=== PATIENT | female | born 1955 | race Caucasian/White ===

== ENCOUNTER 2019-04-25 08:10 | Day surgery (SDC) | payer MEDICARE, MEDICAID ==
--- NOTE | 2019-04-12 10:31 | HP ---
CC: Dr. Andrew Chavez; Dr. Jomar Burleson.* ADMISSION HISTORY AND PHYSICAL: DATE OF ADMISSION: 04/25/19. ATTENDING SURGEON: Dr. Roberta Ascencio.* (DICTATED BY TOAN HAYWARD) CHIEF COMPLAINT: Primary hyperparathyroidism. HISTORY OF PRESENT ILLNESS: This is a 63-year-old female who since at least 2017 has been noted to have elevated serum calcium levels. Her PTH level was also apparently elevated though she was monitored initially. The levels were found to be elevated again on 10/19/18 with serum calcium of 10.7 and an intact PTH of 94.4 (upper limit of normal 88). She was seen by Dr. Burleson. She does have a history of osteoporosis and has sustained 2 fractures in the past couple of years, the first being a right fibular fracture in 2017 and more recently pelvic fracture in 2019 following a fall. The most recent DEXA scan from was consistent with osteoporosis. There is no history of nephrolithiasis. She has not had any history of radiation to the neck. There is no family history of endocrinopathy. She was seen in the office by Dr. Ascencio on 11/07/18 at which time an office ultrasound revealed a presence of a 14 x 7 x 11 mm hypoechoic well circumscribed nodule inferior to the left thyroid pole consistent with parathyroid adenoma. A subsequent ultrasound at [facility] [place] confirmed the presence of 1.1 x 0.5 x 0.9 cm nodule inferior to the left thyroid possibly consistent with parathyroid adenoma. A nuclear medicine SPECT scan performed on the same date initially was read as showing no abnormal update but on subsequent review in comparison with the thyroid ultrasound, there was felt to be some faint radiotracer uptake along the inferior margin of the left thyroid lobe again possibly consistent with parathyroid adenoma. The patient's original surgery had been scheduled in early December but because of an episode of severe sinusitis, surgery was canceled and rescheduled. Dr. Ascencio has reviewed with the patient the indications for surgery, the risks, benefits and alternatives. She understands the expected perioperative course including the need for postoperative calcium supplementation. She would like to proceed as scheduled with parathyroidectomy. PAST MEDICAL HISTORY: Type 2 diabetes, morbid obesity, osteoporosis, hyperlipidemia, hypertension, anxiety, osteoarthritis, and overactive bladder. PAST SURGICAL HISTORY: Include total left knee replacement in 2016, partial right knee replacement in 2013, right breast lumpectomy remotely for benign disease and appendectomy remotely. No surgical or anesthesia problems reported. She had also undergone a for delivery of a stillborn and did have bleeding problems related to the . CURRENT MEDICATIONS: 1. Omeprazole 40 mg once daily. 2. Tramadol 50 mg 2 tablets b.i.d. 3. Metformin 500 mg b.i.d. 4. Losartan 100 mg once daily. 5. Jardiance 10 mg once daily. 6. Trulicity 1.5 mg 1 dose subcutaneously once weekly. 7. Tolterodine 4 mg once daily (for overactive bladder) 8. Meloxicam 15 mg once daily. 9. Ropinirole 1 mg q. day at h.s. 10. Coreg 12.5 mg p.o. b.i.d. 11. The patient has also been initiated on Singulair 10 mg once daily. 12. Fenofibrate 160 mg once daily. 13. Laura 60 mg once daily. 14. Azithromycin (Z-XOCHITL) to be started on 04/12/19 x5 days. ALLERGIES: CODEINE (hyperactivity) (the patient does tolerate oxycodone and hydrocodone). FAMILY HISTORY: Negative for anesthesia problems, bleeding or clotting disorders. SOCIAL HISTORY: The patient is single and lives with her significant other. 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 She is a former smoker, who quit 11 years ago. She drinks on average 1 drink per month. She denies any other recreational drug use. REVIEW OF SYSTEMS: General: No recent constitutional symptoms or acute illnesses other than sinusitis. She has been treated at present for another exacerbation of sinusitis, though not as severe as before. She understands to contact us if she is still having any systemic symptoms and or productive cough. HEENT: No problems reported. Cardiovascular: No chest pain, palpitations. She was treated for hypertension. Respiratory: No recent cough or shortness of breath. GI: No problems reported. She has never had a colonoscopy, though I did encourage to discuss that with her primary care provider. : No problems reported other than overactive bladder. Musculoskeletal: Osteoarthritis, chronic edema lower extremities, right greater than left secondary to prior injury. 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 Her last pelvic exam and Pap smear were also probably at least 3 to 5 years ago and she was encouraged to have this scheduled. She denies any acute symptoms i.e. bleeding or otherwise. Endocrine: Type 2 diabetes. No thyroid dysfunction, hyperparathyroidism as noted above. PHYSICAL EXAMINATION GENERAL: Well-nourished, morbidly obese female in no acute distress. VITAL SIGNS: Height 5 feet 1 inches, weight 232, BMI 43.8, temperature 98.5, blood pressure 148/90, pulse 72. HEENT: Pupils are equal, round, and reactive. EOMs intact. No conjunctival pallor. Oropharynx: Teeth in good repair. No intraoral lesions. NECK: No lymphadenopathy, thyromegaly or masses. No palpable nodules. LUNGS: Clear to auscultation. No rales or wheezes. HEART: Regular rate and rhythm. No murmur noted. ABDOMEN: Obese, soft, nontender to palpation. No palpable masses or organomegaly though exam is limited. GENITALIA: Not done. RECTAL: Not done. BACK: Some mild lower spinous process tenderness. No other abnormalities. No CVA tenderness. EXTREMITIES: 1+ edema slightly greater right versus left. No open lesions. NEUROLOGICAL: Grossly intact. SKIN: Warm and dry. No suspicious rashes or lesions. IMPRESSION: Primary hyperparathyroidism. PLAN: Parathyroidectomy. TOAN HAYWARD [id number]/[facility] #: [id number] MTDD
[~2019-04-25 08:10] MED LIST: Buffered Lidocaine 1% SYRIN* 1 ML/SYRINGE INTRADERM ONE; Lactated Ringers 1000 ML Bag* 1,000 ML IV SCH
[2019-04-25] MEDS ORDERED: Buffered Lidocaine 1% SYRIN* 1 ML/SYRINGE INTRADERM ONE (08:59)
[2019-04-25] MEDS ORDERED: Bupivacaine 0.25% SDV* 30 ML ONE (11:01)
[2019-04-25] MEDS ORDERED: Lidocaine 1% INJ* 10 MG/ML 30 ML SDV ONE (11:01)
[2019-04-25] MEDS ORDERED: fentaNYL* 50 MCG/ML 2 ML VIAL (100 MCG VIAL) ONE (11:35)
[2019-04-25] MEDS ORDERED: Rocuronium* 10 MG/ML VIAL ONE (11:35)
[2019-04-25] MEDS ORDERED: Succinylcholine* 20 MG/ML 10 ML VIAL ONE ×2 (12:09→13:10)
[2019-04-25] MEDS ORDERED: EPHEDrine (Pressors)* 50 MG/ML VIAL ONE (12:09)
[2019-04-25] MEDS ORDERED: Glycopyrrolate IV* 0.2 MG/ML 1 ML VIAL ONE (12:09)
[2019-04-25] MEDS ORDERED: Phenylephrine 40 MCG/ML SYRINGE ONE (12:09)
[2019-04-25] MEDS ORDERED: Propofol* 10 MG/ML 20 ML BTL ONE (12:09)
[2019-04-25] MEDS ORDERED: Naloxone* 0.4 MG/ML 1 ML VIAL IV PRN (12:49)
[2019-04-25] MEDS ORDERED: Acetaminophen IV 1GM/100ML * 1,000 MG/100 ML VIAL IVPB ONE (12:49)
[2019-04-25] MEDS ORDERED: fentaNYL* 50 MCG/ML 2 ML VIAL (100 MCG VIAL) IV PRN (12:49)
[2019-04-25] MEDS ORDERED: Ondansetron INJ* 2 MG/ML VIAL ONE (13:10)
[2019-04-25] MEDS ORDERED: Metoclopramide IV* 5 MG/ML 2 ML VIAL ONE (13:12)
--- NOTE | 2019-04-25 13:22 | BRIEFOPN ---
Brief Operative/Procedure Note - Operation Details Pre-Op Diagnosis: hyperparathyroidism Post-Op Diagnosis: same Procedures: parathyroidectomy with 4 gland exploration Surgeon(s)/Proceduralists: Sonu. Assist: TOAN Ken Anesthesia: GET. Fluids: 1100 ml RL Estimated Blood Loss: < 50 ml Findings: as above Specimen(s)/Culture(s) Description: left lower parathyroid gland Complications: none
[2019-04-25] MEDS ORDERED: Acetaminophen IV 1GM/100ML * 100 ML ONE (14:09)
--- NOTE | 2019-04-25 15:55 | OP ---
CC: Dr. Jomar Burleson * DATE OF OPERATION: 04/25/19 - SDS DATE OF : 55 SERVICE: General Surgery. SURGEON: Roberta Ascencio MD COMBINATION WINDOW INSTALLER: TOAN Campos ANESTHESIOLOGIST: Dr. Darell De Luna. ANESTHESIA: General endotracheal anesthesia. PRE-OP DIAGNOSIS: Primary hyperparathyroidism. POST-OP DIAGNOSIS: Primary hyperparathyroidism. OPERATIVE PROCEDURES: Left lower parathyroidectomy and 4-gland exploration. SPECIMENS: Left lower parathyroid gland. ESTIMATED BLOOD LOSS: Minimal, less than 10 cc. COMPLICATIONS: None. INDICATIONS FOR SURGERY: Ms. Whitaker is a very pleasant 63-year-old female with history of osteoporosis and primary hyperparathyroidism. During her work up, imaging studies showed that she had an enlarged left lower parathyroid gland. She therefore gave informed consent for a parathyroidectomy. She understood that the risks included, but were not limited to bleeding, infection and injury to nearby structures, and the possibility of hypoparathyroidism. She understood the alternatives and benefits as well and she wished to proceed. DESCRIPTION OF PROCEDURE: The patient was brought back to the operating room and placed on the operating table in the supine position. Sequential compression devices were placed on the bilateral lower extremities for DVT prophylaxis. No antibiotics were administered. General endotracheal anesthesia was induced and then the electrodes for the nerve monitor were attached. Next, given that the patient was very obese and had a large habitus, her bilateral breasts had to be taped down in order to expose the neck in an extended position. Next, a time-out was performed prior to administering local anesthesia to the neck, which consisted of 0.25% Marcaine and 1% lidocaine mixed. After this, her neck was prepped and draped in normal sterile fashion and then another time-out was performed confirming the patient's name, date of , and the procedure to be performed prior to beginning the actual surgery. Next, a 4 cm incision was made in the anterior neck approximately 2 fingerbreadths above the sternal notch in the natural crease line. The skin was divided down to the subcutaneous tissue. The platysma was divided and the inferior and superior subplatysmal flaps were then developed. The median raphe between the strap muscles was identified and divided and then the strap muscle was retracted laterally off of the left lobe of the thyroid, given that her preoperative ultrasound identified a enlarged left lower gland. The middle thyroid vein was identified and divided in order to allow the left thyroid lobe to be rotated medially and anteriorly of the neck. The left upper parathyroid was identified very easily and a small biopsy clip was placed across the lower aspect of the gland. Next, attention was turned towards the left lower thyroid lobe. In the thyrothymic ligaments just below the thyroid lobe, an enlarged parathyroid gland was identified. It was isolated on its pedicle and divided. At this point, serial PTH values were obtained. Baseline had been drawn in the pre op holding area and then a T0, T5, and T10 were then drawn. Her baseline was 93 and then her T0 returned at 70.7, T5 was 30.4, and T10 was 17.9. While awaiting for these laboratory values to result, an exploration of the right neck was performed to identify the right parathyroid glands. The right lower parathyroid gland was identified easily just below the inferior pole of the thyroid lobe in a similar position to where the left one was located. A biopsy clip was placed across the inferior aspect of the gland. The right thyroid lobe was then rotated medially and anteriorly after dividing the middle thyroid vein and then the right upper parathyroid gland was identified more posteriorly. It was also clipped. After confirming the location of all 4 glands and awaiting the PTH values after the left lower gland was removed, hemostasis was obtained in the neck. Tisseel was then placed. The strap muscles were reapproximated using 4-0 Vicryl sutures. The platysma was reapproximated using interrupted 4-0 Vicryl sutures and the skin was closed using a running 5-0 Prolene suture. Sterile dressing was then placed. The patient's anesthesia was reversed and she was taken to the PACU in stable condition. At the end of the case, all counts were correct and I was present during the entirety of the case. [id number]/[facility] #: [id number] FELIPE
[2019-04-25 19:27] VITALS: BP 172/75
== END 2019-04-25 20:13 | disposition home or self-care (01) ==
LOC: OR 08:10
PROVIDERS: ATTEND Surgery
DX: E21.0 Primary hyperparathyroidism (principal); E11.9 Type 2 diabetes mellitus without complications; Z79.84 Long term (current) use of oral hypoglycemic drugs; E66.01 Morbid (severe) obesity due to excess calories; M81.0 Age-related osteoporosis without current pathological fracture; E78.5 Hyperlipidemia, unspecified; I10 Essential (primary) hypertension; F41.9 Anxiety disorder, unspecified; M19.90 Unspecified osteoarthritis, unspecified site; Z96.652 Presence of left artificial knee joint
CPT/HCPCS: 36415; 83970; 88305; C1776; J0330; J2405; J2704; J2765; J3010; J3490

== ENCOUNTER 2022-09-23 16:53 | Inpatient (IN) ==
[2022-09-23] MEDS ORDERED: Furosemide 20 mg/2 ml IV VIAL IV ONE (18:15)
[2022-09-23] MEDS ORDERED: Dextrose 50% Syringe 50 ml 25 GM/50 ML SYRINGE IV PUSH PRN (19:05)
[2022-09-23] MEDS ORDERED: nitroGLYCERIN DRIP 25,000 MCG/250 ML BTL IV SCH (20:00)
[2022-09-23] MEDS: Enoxaparin 40 MG/0.4 ML SYR SUBCUT SCH (20:22)
[2022-09-23 21:19] LABS: Calcium 9.7 mg/dL (8.6-10.3); Creatinine, Serum 0.87 mg/dL (0.51-0.95); Magnesium 1.5 mg/dL (1.9-2.7); Potassium 3.5 mmol/L (3.5-5.0); eGFR CKD-EPI 73.4 (>60)
[2022-09-23] MEDS ORDERED: Magnesium Sulfate IV 3 GM in NS 0.9% 100 ml BAG 100 ML IVPB ONE (23:00)
[2022-09-23] MEDS ORDERED: Potassium Chlor 20 meq TAB.ER PO ONE (23:00)
[2022-09-24] MEDS ORDERED: Furosemide 40 mg/4 ml IV VIAL IV SCH (03:00)
[2022-09-24 04:55] LABS: ABS Basophils 0.1 10^3/uL (0.0-0.1); ABS Eosinophils 0.3 10^3/uL (0.0-0.5); ABS Monocytes 0.8 10^3/uL (0.0-0.9); ABS Neutrophils 7.8 10^3/uL (1.5-7.6); ABS Nucleated RBC 0.01 10^3/ul; Eosinophil % 3.3 %; Hematocrit 36.5 % (35-45); Hemoglobin 11.5 g/dL (11.5-14.3); Lymphocyte % 9.7 %; Mean Corpuscular Hemoglobin 24.7 pg (27-33); Mean Corpuscular Hgb Conc 31.6 g/dL (31-36); Mean Corpuscular Volume 78.3 fL (80-97); Mean Platelet Volume 8.8 fL (7.5-11.2); Nucleated Red Blood Cells % 0.1 /100 WBC (0.0-0.4); Platelet Count 244 10^3/uL (150-450); Red Blood Count 4.67 10^6/uL (3.63-4.92); Red Cell Distribution Width 17.7 % (12-17); White Blood Count 9.9 10^3/uL (3.8-11.8)
[2022-09-24 05:14] LABS: Calcium 9.3 mg/dL (8.6-10.3); Creatinine, Serum 0.75 mg/dL (0.51-0.95); HDL Cholesterol 28.9 mg/dL; Magnesium 2.3 mg/dL (1.9-2.7); Potassium 4.1 mmol/L (3.5-5.0); eGFR CKD-EPI 87.8 (>60)
[2022-09-24 05:29] LABS: TSH Ultra Thyroid Stim Horm 1.13 mcIU/mL (0.34-5.60)
[2022-09-24] MEDS ORDERED: Furosemide 40 mg/4 ml IV VIAL IV SLOW PU SCH (11:00)
[2022-09-24 14:40] LABS: High Sensitivity Troponin 1 Hr 7 pg/mL (<15)
[2022-09-24] MEDS: Furosemide 40 mg/4 ml IV VIAL IV SLOW PU SCH (17:16)
[2022-09-24] MEDS: Enoxaparin 40 MG/0.4 ML SYR SUBCUT SCH (20:25)
[2022-09-25 06:48] LABS: ABS Basophils 0.1 10^3/uL (0.0-0.1); ABS Eosinophils 0.4 10^3/uL (0.0-0.5); ABS Lymphocytes 1.2 10^3/uL (1.0-4.8); ABS Monocytes 0.7 10^3/uL (0.0-0.9); ABS Neutrophils 6.8 10^3/uL (1.5-7.6); Eosinophil % 4.8 %; Hemoglobin 11.9 g/dL (11.5-14.3); Lymphocyte % 12.7 %; Mean Corpuscular Hemoglobin 24.7 pg (27-33); Mean Corpuscular Hgb Conc 31.4 g/dL (31-36); Mean Corpuscular Volume 78.5 fL (80-97); Mean Platelet Volume 8.2 fL (7.5-11.2); Platelet Count 239 10^3/uL (150-450); Red Blood Count 4.84 10^6/uL (3.63-4.92); Red Cell Distribution Width 17.9 % (12-17); White Blood Count 9.2 10^3/uL (3.8-11.8)
[2022-09-25 07:01] LABS: Calcium 9.1 mg/dL (8.6-10.3); Creatinine, Serum 0.67 mg/dL (0.51-0.95); Magnesium 1.9 mg/dL (1.9-2.7); Potassium 3.5 mmol/L (3.5-5.0); eGFR CKD-EPI 96.3 (>60)
[2022-09-25] MEDS: Furosemide 40 mg/4 ml IV VIAL IV SLOW PU SCH (10:35)
[2022-09-25] MEDS: Fluticasone NASAL SPRAY 50MCG 16 gm SPRAY BTL BOTH NARES SCH (12:14)
[2022-09-25] MEDS: Enoxaparin 40 MG/0.4 ML SYR SUBCUT SCH (20:12)
[2022-09-26 08:05] LABS: ABS Basophils 0.1 10^3/uL (0.0-0.1); ABS Eosinophils 0.4 10^3/uL (0.0-0.5); ABS Monocytes 0.9 10^3/uL (0.0-0.9); ABS Neutrophils 7.4 10^3/uL (1.5-7.6); ABS Nucleated RBC 0.01 10^3/ul; Eosinophil % 4.3 %; Hematocrit 38.8 % (35-45); Hemoglobin 12.1 g/dL (11.5-14.3); Lymphocyte % 10.1 %; Mean Corpuscular Hemoglobin 24.7 pg (27-33); Mean Corpuscular Hgb Conc 31.2 g/dL (31-36); Mean Corpuscular Volume 79.1 fL (80-97); Mean Platelet Volume 8.6 fL (7.5-11.2); Nucleated Red Blood Cells % 0.1 /100 WBC (0.0-0.4); Platelet Count 261 10^3/uL (150-450); Red Blood Count 4.91 10^6/uL (3.63-4.92); Red Cell Distribution Width 17.5 % (12-17); White Blood Count 9.7 10^3/uL (3.8-11.8)
[2022-09-26 08:09] LABS: Calcium 9.2 mg/dL (8.6-10.3); Creatinine, Serum 0.86 mg/dL (0.51-0.95); Potassium 4.2 mmol/L (3.5-5.0); eGFR CKD-EPI 74.5 (>60)
[2022-09-26] MEDS ORDERED: Regadenoson 0.4 MG/5 ML SYRINGE ONE (09:05)
[2022-09-26] MEDS ORDERED: Aminophylline 25 MG/ML VIAL ONE (09:05)
[2022-09-26] MEDS: Fluticasone NASAL SPRAY 50MCG 16 gm SPRAY BTL BOTH NARES SCH (11:25)
[2022-09-26] MEDS ORDERED: Furosemide 40 mg/4 ml IV VIAL IV SLOW PU ONE (15:51)
[2022-09-26] MEDS: Enoxaparin 40 MG/0.4 ML SYR SUBCUT SCH (19:27)
[2022-09-27 06:10] LABS: Calcium 9.1 mg/dL (8.6-10.3); Creatinine, Serum 0.69 mg/dL (0.51-0.95); Magnesium 1.9 mg/dL (1.9-2.7); Potassium 4.3 mmol/L (3.5-5.0); eGFR CKD-EPI 95.7 (>60)
[2022-09-27] MEDS: Fluticasone NASAL SPRAY 50MCG 16 gm SPRAY BTL BOTH NARES SCH (08:15)
[2022-09-27] MEDS ORDERED: Furosemide 40 mg/4 ml IV VIAL IV SLOW PU ONE (09:26)
[2022-09-27] MEDS ORDERED: Lorazepam PYXIS KEY PRN (13:35)
[2022-09-27] MEDS ORDERED: Iodixanol (CONTRAST) 320 MG/ML 100 ML SDV IV ONE (13:57)
[2022-09-27] MEDS ORDERED: LORazepam 2 mg VIAL 1 ml IV PUSH ONE (14:00)
[2022-09-27] MEDS: Enoxaparin 40 MG/0.4 ML SYR SUBCUT SCH (20:20)
[2022-09-28 06:16] LABS: ABS Eosinophils 0.5 10^3/uL (0.0-0.5); ABS Lymphocytes 1.2 10^3/uL (1.0-4.8); ABS Monocytes 0.9 10^3/uL (0.0-0.9); ABS Neutrophils 6.3 10^3/uL (1.5-7.6); ABS Nucleated RBC 0.01 10^3/ul; Hemoglobin 12.5 g/dL (11.5-14.3); Lymphocyte % 13.6 %; Mean Corpuscular Hemoglobin 24.9 pg (27-33); Mean Corpuscular Hgb Conc 31.3 g/dL (31-36); Mean Corpuscular Volume 79.5 fL (80-97); Mean Platelet Volume 8.4 fL (7.5-11.2); Nucleated Red Blood Cells % 0.1 /100 WBC (0.0-0.4); Platelet Count 254 10^3/uL (150-450); Red Blood Count 5.03 10^6/uL (3.63-4.92); Red Cell Distribution Width 17.6 % (12-17); White Blood Count 8.9 10^3/uL (3.8-11.8)
[2022-09-28 06:34] LABS: C Reactive Protein 19.52 mg/L (<8.01); Calcium 9.4 mg/dL (8.6-10.3); Creatinine, Serum 0.61 mg/dL (0.51-0.95); Magnesium 1.9 mg/dL (1.9-2.7); Potassium 4.2 mmol/L (3.5-5.0); eGFR CKD-EPI 98.5 (>60)
[2022-09-28] MEDS: Fluticasone NASAL SPRAY 50MCG 16 gm SPRAY BTL BOTH NARES SCH (07:41)
[2022-09-28 10:18] VITALS: BP 143/69
== END 2022-09-28 14:25 | disposition home or self-care (01) | DRG 291 ==
LOC: ED 16:53 → SUATTDRO 18:55 → EDHOLD 18:55 → ICU 20:32 → SSU 09-24 11:31
PROVIDERS: ADMIT Internal Medicine Critical Care Medicine; ATTEND Internal Medicine